=== PATIENT | female | born 1965 | race Caucasian/White ===

== ENCOUNTER 2018-07-30 11:59 | Emergency (ER) | payer BC ==
[2018-07-30] MEDS ORDERED: IPRATROPIUM BROM 0.5MG/2.5ML ONE (13:37)
[2018-07-30] MEDS ORDERED: ALBUTEROL 2.5 MG/3 ML NEB SOL ONE (13:37)
[2018-07-30] MEDS ORDERED: predniSONE 20 MG TAB ONE (13:38)
--- NOTE | 2018-07-30 14:35 | RAD REPORT ---
EXAM DESCRIPTION: RAD - Chest Single View - 07/30/2018 2:20 pm CLINICAL HISTORY: COUGH Chest pain. COMPARISON: No comparisons FINDINGS: Portable technique limits examination quality. The lungs are grossly clear. Heart is upper limit normal size. No displaced fractures. IMPRESSION: No acute intrathoracic process suspected.
--- NOTE | 2018-07-30 14:59 | EDPHYS ---
Physician Documentation [facility] Name: Nadia Putnam Age: 53 yrs Sex: Female : 1965 Arrival Date: 07/30/2018 Time: 12:01 Bed 27 Private MD: ED Physician Dyu Deng HPI: 07/30 13:25 This 53 yrs old Female presents to ER via Ambulatory with complaints of ma2 Shortness Of Breath. 13:25 The patient has shortness of breath during heavy activity. Onset: The symptoms/episode ma2 began/occurred gradually, 2 day(s) ago. Duration: The symptoms are chronic. Associated signs and symptoms: Pertinent negatives: chest pain, non-productive cough, diaphoresis, fever, nausea, numbness in extremities. Severity of symptoms: At their worst the symptoms were mild in the emergency department the symptoms have improved. The patient has experienced similar episodes in the past. 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 - Social history:: Patient/guardian denies using alcohol, street drugs, The patient lives with family, Smoking status: Patient uses tobacco products. - Family history:: not pertinent. - Ebola Screening: : No symptoms or risks identified at this time. ROS: 13:25 Constitutional: Negative for fever, chills, and weight loss, Neck: Negative for injury, ma2 pain, and swelling, Cardiovascular: Negative for chest pain, palpitations, and edema, Abdomen/GI: Negative for abdominal pain, nausea, diarrhea, and constipation, Neuro: Negative for headache, weakness, numbness, tingling, and seizure. 13:25 Respiratory: Positive for cough, shortness of breath, wheezing, Negative for hemoptysis. 13:25 All other systems are negative. Exam: 13:25 Constitutional: This is a well developed, well nourished patient who is awake, alert, ma2 and in no acute distress. Neck: Trachea midline, no thyromegaly or masses palpated, and no cervical lymphadenopathy. Supple, full range of motion without nuchal rigidity, or vertebral point tenderness. No Meningismus. Chest/axilla: Normal chest wall appearance and motion. Nontender with no deformity. No lesions are appreciated. Cardiovascular: Regular rate and rhythm with a normal S1 and S2. No gallops, murmurs, or rubs. Normal PMI, no JVD. No pulse deficits. Abdomen/GI: Soft, non-tender, with normal bowel sounds. No distension or tympany. No guarding or rebound. No evidence of tenderness throughout. MS/ Extremity: Pulses equal, no cyanosis. Neurovascular intact. Full, normal range of motion. Neuro: Awake and alert, GCS 15, oriented to person, place, time, and situation. Cranial nerves II-XII grossly intact. Motor strength 5/5 in all extremities. Sensory grossly intact. Cerebellar exam normal. Normal gait. Psych: Awake, alert, with orientation to person, place and time. Behavior, mood, and affect are within normal limits. 13:25 Respiratory: the patient does not display signs of respiratory distress, Respirations: normal, Breath sounds: wheezing: expiratory that is mild, is heard diffusely. Vital Signs: 12:04 BP 166 / 78; Pulse 80; Resp 28; Temp 98.5; Pulse Ox 96% on R/A; Weight 83.91 kg (R); aj1 Height 4 ft. 9 in. (144.78 cm) (R); Pain 10/10; 13:51 BP 182 / 89; Pulse 77; Resp 20; Pulse Ox 99% on R/A; kr2 14:52 BP 198 / 95; Pulse 76; Resp 19; Pulse Ox 97% on R/A; kr2 12:04 Body Mass Index 40.03 (83.91 kg, 144.78 cm) aj1 MDM: 13:14 Patient medically screened. ma2 13:25 Differential diagnosis: Anxiety Reaction asthma, Bronchitis Chronic Obstructive ma2 Pulmonary Disease Pneumothorax reactive airway disease. Antibiotic administration: The patient is discharged and will get outpatient antibiotics. The patient's [place] Deep Vein Thrombosis Score was calculated as follows: No Risks (0 Pts). The patient's pulmonary embolism risk score was calculated as follows: No Risks (0 Pts). 14:32 Data reviewed: vital signs, nurses notes, EMS record, EKG, radiologic studies. ma2 Counseling: I had a detailed discussion with the patient and/or guardian regarding: the historical points, exam findings, and any diagnostic results supporting the discharge/admit diagnosis, the presence of at least one elevated blood pressure reading (>120/80) during this emergency department visit, lab results. Counseling: I had a detailed discussion with the patient and/or guardian regarding: the need for outpatient follow up. Response to treatment: the patient's symptoms have markedly improved after treatment. 07/30 13:25 Order name: XRAY Chest (1 view); Complete Time: 14:58 ma2 Administered Medications: 13:35 Drug: Albuterol - atroVENT (3:1) (2.5 mg - 0.5 mg) 3 ml Route: Nebulizer; kr2 14:00 Follow up: Response: No adverse reaction; Marked relief of symptoms kr2 13:35 Drug: predniSONE 40 mg Route: PO; kr2 15:17 Follow up: Response: No adverse reaction kr2 Disposition: 07/30/18 14:59 Discharged to Home. Impression: Chronic obstructive pulmonary disease, unspecified. - Condition is Fair. - Discharge Instructions: Chronic Obstructive Pulmonary Disease Exacerbation. - Prescriptions for Atrovent 0.03 % Nasal Aerosol, Sapphire - inhale 2 spray by INTRANASAL route 2 times per day for 7 days; 1 bottle. Prednisone 20 mg Oral Tablet - take 3 tablet by ORAL route once daily for 5 days; 15 tablet. Fluconazole 150 mg Oral Tablet - take 1 tablet by ORAL route once daily; 30 tablet. Zithromax Z- Alex 250 mg Oral Tablet - take 1 tablet by ORAL route as directed for 5 days Day 1 - take two (2) tablets one time. Day 2, 3, 4 , 5 take one (1) tablet once daily.; 6 tablet. Nystatin- Triamcinolone 100,000-0.1 unit/gram-% Topical Ointment - apply 1 application by TOPICAL route 2 times per day; 1 tube. Albuterol Sulfate 90 mcg/actuation - inhale 1-2 puff by INHALATION route every 4-6 hours; 1 Inhaler. - Medication Reconciliation Form, Thank You Letter, Antibiotic Education, Prescription Opioid Use form. - Follow up: Private Physician; When: Tomorrow; Reason: Continuance of care. Signatures: Dispatcher [facility] HospitalTammy Lee RN RN aj1 Echo Cedillo RN RN kr2 Duy Deng MD MD ma2 Corrections: (The following items were deleted from the chart) 15:18 14:59 07/30/2018 14:59 Discharged to Home. Impression: Chronic obstructive pulmonary kr2 disease, unspecified. Condition is Fair. Prescriptions for Atrovent 0.03 % Nasal Aerosol, Sapphire - inhale 2 spray by INTRANASAL route 2 times per day for 7 days; 1 bottle, Prednisone 20 mg Oral Tablet - take 3 tablet by ORAL route once daily for 5 days; 15 tablet, Fluconazole 150 mg Oral Tablet - take 1 tablet by ORAL route once daily; 30 tablet, Zithromax Z-Alex 250 mg Oral Tablet - take 1 tablet by ORAL route as directed for 5 days Day 1 - take two (2) tablets one time. Day 2, 3, 4 , 5 take one (1) tablet once daily.; 6 tablet, Nystatin-Triamcinolone 100,000-0.1 unit/gram-% Topical Ointment - apply 1 application by TOPICAL route 2 times per day; 1 tube. and Forms are Medication Reconciliation Form, Thank You Letter, Antibiotic Education, Prescription Opioid Use. Follow up: Private Physician; When: Tomorrow; Reason: Continuance of care. ma2
--- NOTE | 2018-07-30 14:59 | ER ---
Nurse's Notes [facility] Name: Nadia Putnam Age: 53 yrs Sex: Female : 1965 Arrival Date: 07/30/2018 Time: 12:01 Bed 27 Private MD: Diagnosis: Chronic obstructive pulmonary disease, unspecified Presentation: 07/30 12:02 Presenting complaint: Patient states: SOB, productive cough, sinus pressure for the aj1 past 2 days. Denies fever. Denies N/V/D. Transition of care: patient was not received from another setting of care. Onset of symptoms was July 28, 2018. Risk Assessment: Do you want to hurt yourself or someone else? Patient reports no desire to harm self or others. Initial Sepsis Screen: Does the patient meet any 2 criteria? RR > 20 per min. No. Patient's initial sepsis screen is negative. Does the patient have a suspected source of infection? Yes: Productive cough/pneumonia. Care prior to arrival: None. 12:02 Method Of Arrival: Ambulatory aj1 12:02 Acuity: RAEGAN 3 aj1 Triage Assessment: 12:04 General: Appears in no apparent distress. uncomfortable, Behavior is calm, cooperative, aj1 appropriate for age. Pain: Complains of pain in back, anterior aspect of right shoulder, posterior aspect of right shoulder and neck Pain currently is 10 out of 10 on a pain scale. Neuro: Level of Consciousness is awake, alert, obeys commands. Cardiovascular: Patient's skin is warm and dry. Respiratory: Reports shortness of breath cough that is productive, Airway is patent Respiratory effort is even, unlabored, Respiratory pattern is regular, tachypnea Onset: The symptoms/episode began/occurred 2 days ago, the patient has mild shortness of breath. 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 - Social history:: Patient/guardian denies using alcohol, street drugs, The patient lives with family, Smoking status: Patient uses tobacco products. - Family history:: not pertinent. - Ebola Screening: : No symptoms or risks identified at this time. Screenin:15 Abuse screen: Denies threats or abuse. Denies injuries from another. Nutritional kr2 screening: No deficits noted. Tuberculosis screening: No symptoms or risk factors identified. Fall Risk None identified. Assessment: 13:15 General: Appears in no apparent distress. comfortable, well groomed, Behavior is calm, kr2 cooperative, appropriate for age. Pain: Complains of pain in right shoulder, rash under breasts Pain does not radiate. Pain currently is 5 out of 10 on a pain scale. Quality of pain is described as burning, aching, tender, Is continuous, Alleviated by medications. Neuro: Level of Consciousness is awake, alert, obeys commands, Oriented to person, place, time, situation, Appropriate for age. Cardiovascular: Heart tones S1 S2 present Capillary refill < 3 seconds in bilateral fingers Patient's skin is warm and dry. Rhythm is sinus rhythm. Respiratory: Reports shortness of breath on exertion cough that is non-productive, Airway is patent Respiratory effort is even, unlabored, Respiratory pattern is regular, symmetrical, Breath sounds are clear bilaterally. the patient has mild shortness of breath. GI: Abdomen is flat, non-distended. EENT: Nares are clear bilaterally Oral mucosa is moist. Derm: Skin is intact, is healthy with good turgor, Skin is pink, warm \T\ dry. Rash noted that is red, on under breast. Musculoskeletal: Circulation, motion, and sensation intact. 14:27 Reassessment: Patient appears in no apparent distress at this time. Patient and/or kr2 family updated on plan of care and expected duration. Pain level reassessed. Patient is alert, oriented x 3, equal unlabored respirations, skin warm/dry/pink. Patient states feeling better. 14:52 Reassessment: Patient appears in no apparent distress at this time. Patient and/or kr2 family updated on plan of care and expected duration. Pain level reassessed. Patient is alert, oriented x 3, equal unlabored respirations, skin warm/dry/pink. Patient reports she has only taken one of her blood pressure medications today, provider notified of vital signs and patient only taking one medication today. Vital Signs: 12:04 BP 166 / 78; Pulse 80; Resp 28; Temp 98.5; Pulse Ox 96% on R/A; Weight 83.91 kg (R); aj1 Height 4 ft. 9 in. (144.78 cm) (R); Pain 10/10; 13:51 BP 182 / 89; Pulse 77; Resp 20; Pulse Ox 99% on R/A; kr2 14:52 BP 198 / 95; Pulse 76; Resp 19; Pulse Ox 97% on R/A; kr2 12:04 Body Mass Index 40.03 (83.91 kg, 144.78 cm) aj1 ED Course: 12:01 Patient arrived in ED. aj1 12:03 Triage completed. aj1 12:04 Arm band placed on Patient placed in waiting room, Patient notified of wait time. aj1 13:14 Duy Deng MD is Attending Physician. ma2 13:15 Patient has correct armband on for positive identification. Bed in low position. Call kr2 light in reach. Side rails up X 1. vehicle monitor technician on. Pulse ox on. NIBP on. Door closed. Warm blanket given. Head of bed elevated. 13:27 Echo Cedillo, RN is Primary Nurse. kr2 14:17 X-ray completed. Portable x-ray completed in exam room. Patient tolerated procedure 1 well. 14:19 XRAY Chest (1 view) In Process Unspecified. EDMS 15:16 No provider procedures requiring assistance completed. Patient did not have IV access kr2 during this emergency room visit. Administered Medications: 13:35 Drug: Albuterol - atroVENT (3:1) (2.5 mg - 0.5 mg) 3 ml Route: Nebulizer; kr2 14:00 Follow up: Response: No adverse reaction; Marked relief of symptoms kr2 13:35 Drug: predniSONE 40 mg Route: PO; kr2 15:17 Follow up: Response: No adverse reaction kr2 Outcome: 14:59 Discharge ordered by . ma2 15:17 Discharged to home ambulatory, with family. kr2 15:17 Condition: improved 15:17 Discharge instructions given to patient, family, Instructed on discharge instructions, follow up and referral plans. medication usage, Demonstrated understanding of instructions, follow-up care, medications, Prescriptions given X 6 15:18 Patient left the ED. kr2 Signatures: Dispatcher [employer] EDMS Tammy Ortega RN RN aj1 Ginger Ramsey [facility] Echo Cedillo RN RN kr2 Alzahri, Mohammad, MD MD ma2
== END 2018-07-30 15:18 | disposition home or self-care (01) ==
LOC: ER 11:59
DX: J44.9 Chronic obstructive pulmonary disease, unspecified (principal); F17.200 Nicotine dependence, unspecified, uncomplicated
CPT/HCPCS: 71045; 94640; 99285; J7512